=== PATIENT | female | born 1945 | race Caucasian/White ===

== ENCOUNTER 2022-02-22 21:58 | Emergency (ER) | payer SELFPAY | END 2022-02-22 22:10 | disposition left against medical advice (07) | LOC: ER 21:58 | DX: Z53.21 Procedure and treatment not carried out due to patient leaving prior to being seen by health care provider (principal) | CPT/HCPCS: 93005 ==

== ENCOUNTER 2023-11-27 08:48 | Emergency (ER) | payer OTHER ==
[~2023-11-27] VITALS: Ht 152.4 cm; Wt 60.0 kg
[2023-11-27 09:02] VITALS: BP 191/91; PULSE 86; RESP 18; TEMP 97.8; O2SAT 98
[2023-11-27] MEDS ORDERED: TOPUD PO (10:33)
[2023-11-27] MEDS ORDERED: DICL100G58 TP (10:33)
== END 2023-11-27 11:18 | disposition home or self-care (01) ==
LOC: ER 08:48
DX: M25.511 Pain in right shoulder (principal); I10 Essential (primary) hypertension
CPT/HCPCS: 73030; 99283